=== PATIENT | female | born 1985 | race Caucasian/White ===

== ENCOUNTER 2018-11-04 12:04 | Emergency (ER) | payer MEDICAID ==
[~2018-11-04] VITALS: Ht 157.5 cm; Wt 89.5 kg
[~2018-11-04 12:04] MED LIST: NOCURR
[2018-11-04] MEDS ORDERED: KETO15I IM (12:10)
[2018-11-04] MEDS ORDERED: BIRTH CONTROL PO (12:10)
[2018-11-04] MEDS ORDERED: IBUP-2354 PO (12:10)
[2018-11-04 14:54] LABS: ANION GAP 10 mmol/L (8-16); CALCIUM, TOTAL 9.3 mg/dL (8.8-10.5); CARBON DIOXIDE 26 mmol/L (22-29); CHLORIDE 102 mmol/L (98-107); CREATININE 0.45 mg/dL (0.60-1.30); GLOMERULAR FILTR. RATE CALC > 60 mL/min (>60); GLUCOSE,RANDOM 83 mg/dL (70-110); POTASSIUM 4.3 mmol/L (3.5-5.1); SODIUM SERUM 138 mmol/L (136-145); UREA NITROGEN, BLOOD 14 mg/dL (7-18)
[2018-11-04] MEDS ORDERED: ONDANSETRON HCL 4 MG/2 ML VIAL IVP ONE (15:00)
[2018-11-04] MEDS ORDERED: MORPHINE SULFATE 4 MG/ML SYRINGE IVP ONE (15:00)
[2018-11-04] MEDS ORDERED: SODIUM CHLORIDE 0.9% 1,000 ML IV ONE (15:00)
[2018-11-04 15:01] LABS: BASOPHILS % (AUTO) 0.5 % (0.0-2.0); EOSINOPHILS % (AUTO) 1.7 % (1.0-6.0); HEMATOCRIT 39.6 % (36-46); HEMOGLOBIN 13.4 g/dL (12.0-16.0); LYMPHOCYTES # (AUTO) 2.8 K/uL (1.0-4.8); LYMPHOCYTES % (AUTO) 32.8 % (22.0-44.0); MEAN CORPUSCULAR HEMOGLOBIN 28.3 pg (26.0-34.0); MEAN CORPUSCULAR HGB CONC 33.8 G/dL (31.0-37.0); MEAN CORPUSCULAR VOLUME 84 fL (80-100); MONOCYTES # (AUTO) 0.5 K/uL (0.1-1.0); MONOCYTES % (AUTO) 5.8 % (2.0-9.0); NEUTROPHILS % (AUTO) 59.2 % (40.0-70.0); PLATELET COUNT (AUTO) 321 K/uL (150-450); RED BLOOD CELL COUNT(AUTO) 4.72 MIL/uL (4.00-5.20)
[2018-11-04 15:06] LABS: ALANINE AMINOTRANSFERASE 28 U/L (12-78); ALBUMIN 4.1 g/dL (3.4-5.0); ALKALINE PHOSPHATASE 100 U/L (46-116); ASPARTATE AMINOTRANSFERASE 27 U/L (15-37); BILIRUBIN,TOTAL 0.6 mg/dL (0.1-1.0); HCG,QUANTITATIVE < 1 mIU/mL (0-6); LIPASE 134 U/L (73-393); TOTAL PROTEIN, SERUM 7.3 g/dL (6.4-8.2)
[2018-11-04 15:32] LABS: APPEARANCE,URINE CLOUDY (CLEAR); BILIRUBIN,URINE NEGATIVE (NEGATIVE); GLUCOSE, URINE (UA) NEGATIVE (NEGATIVE); KETONES,URINE NEGATIVE (NEGATIVE); LEUKOCYTE ESTERASE ,URINE NEGATIVE (NEGATIVE); NITRATE,URINE NEGATIVE (NEGATIVE); OCCULT BLOOD,URINE NEGATIVE (NEGATIVE); PH,URINE 5.5 (5.0-8.0); PROTEIN,URINE TRACE (NEGATIVE); UROBILINOGEN,URINE 0.2 mg/dL (<=1.0)
[2018-11-04 15:41] LABS: BACTERIA,URINE Few /HPF (None Seen); YEAST,URINE Many /HPF (None Seen)
[2018-11-04 19:45] VITALS: BP 132/76
== END 2018-11-04 20:34 | disposition home or self-care (01) ==
LOC: EMS 12:05
DX: R10.31 Right lower quadrant pain (principal); R11.0 Nausea
CPT/HCPCS: 36415; 76856; 80053; 81001; 83690; 84484; 84702; 85025; 96374; 96375; 99284; J2270; J2405; J7030

== ENCOUNTER 2021-05-12 19:02 | Emergency (ER) | payer MEDICAID ==
[~2021-05-12] VITALS: Ht 157.5 cm; Wt 10.9 kg
[~2021-05-12 19:02] MED LIST changes: +BIRTH CONTROL PO; +IBUP-2759 PO; +KETO15I IM
[2021-05-12 20:21] LABS: BASOPHILS % (AUTO) 0.5 % (0.0-2.0); EOSINOPHILS % (AUTO) 2.7 % (1.0-6.0); HEMOGLOBIN 12.1 g/dL (12.0-16.0); LYMPHOCYTES # (AUTO) 1.8 K/uL (1.0-4.8); LYMPHOCYTES % (AUTO) 25.6 % (22.0-44.0); MEAN CORPUSCULAR HEMOGLOBIN 27.6 pg (26.0-34.0); MEAN CORPUSCULAR HGB CONC 33.7 G/dL (31.0-37.0); MEAN CORPUSCULAR VOLUME 82 fL (80-100); MONOCYTES # (AUTO) 0.5 K/uL (0.1-1.0); MONOCYTES % (AUTO) 6.9 % (2.0-9.0); NEUTROPHILS # (AUTO) 4.6 K/uL (1.8-7.7); NEUTROPHILS % (AUTO) 64.3 % (40.0-70.0); PLATELET COUNT (AUTO) 304 K/uL (150-450); RED BLOOD CELL COUNT(AUTO) 4.39 MIL/uL (4.00-5.20); RED CELL DISTRIBUTION WIDTH 13.5 % (11.5-14.5)
[2021-05-12 20:32] LABS: ANION GAP 11 mmol/L (8-16); CARBON DIOXIDE 25 mmol/L (22-29); CHLORIDE 103 mmol/L (98-107); CREATININE 0.43 mg/dL (0.60-1.30); GLOMERULAR FILTR. RATE CALC > 60 mL/min (>60); GLUCOSE,RANDOM 143 mg/dL (70-110); POTASSIUM 3.5 mmol/L (3.5-5.1); SODIUM SERUM 139 mmol/L (136-145); UREA NITROGEN, BLOOD 8 mg/dL (7-18)
[2021-05-12 20:44] LABS: ALANINE AMINOTRANSFERASE 48 U/L (12-78); ALBUMIN 3.6 g/dL (3.4-5.0); ALKALINE PHOSPHATASE 109 U/L (46-116); ASPARTATE AMINOTRANSFERASE 25 U/L (15-37); BILIRUBIN,TOTAL 0.4 mg/dL (0.1-1.0); HCG,QUANTITATIVE < 1 mIU/mL (0-6); TOTAL PROTEIN, SERUM 7.2 g/dL (6.4-8.2)
[2021-05-12 21:45] VITALS: BP 153/84
== END 2021-05-12 22:19 | disposition home or self-care (01) ==
LOC: EMS 19:05
DX: R07.9 Chest pain, unspecified (principal)
CPT/HCPCS: 71045; 80053; 84484; 84702; 85025; 93005; 99285; 36415-L1; 36415-TC